=== PATIENT | female | born 1985 ===

== ENCOUNTER 2018-07-04 23:52 | Emergency (ER) | payer MEDICAID ==
[~2018-07-04] VITALS: Ht 154.9 cm; Wt 111.4 kg
[2018-07-05 00:02] VITALS: Ht 154.9 cm; Wt 111.4 kg
[2018-07-05] MEDS ORDERED: LOTENSIN20 MG PO (00:04)
[2018-07-05] MEDS ORDERED: GLUCOPHAGE500 MG (00:04)
[2018-07-05] MEDS ORDERED: XANAX2 MG (00:04)
[2018-07-05] MEDS ORDERED: ADVAIR HFA [SP]12 GM (00:05)
[2018-07-05] MEDS ORDERED: BENADRYL25 MG (00:05)
[2018-07-05] MEDS ORDERED: NEURONTIN800 MG (00:05)
[2018-07-05] MEDS ORDERED: CETIRIZINE HCL5 M1 PO (00:05)
[2018-07-05] MEDS ORDERED: VENTOLIN HFA18 GM (00:05)
[2018-07-05 01:22] VITALS: BP 142/83
== END 2018-07-05 01:26 | disposition home or self-care (01) ==
LOC: D.ER 23:52
DX: T78.40XA Allergy, unspecified, initial encounter (principal); X58.XXXA Exposure to other specified factors, initial encounter